=== PATIENT | male | born 1995 | race Caucasian/White ===

== ENCOUNTER 2025-03-25 07:04 | Day surgery (SDC) | payer OTHER ==
[2025-03-25] MEDS ORDERED: LIDOCAINE 1%-EPI 1:100,000 20 ML VIAL ONE (08:29)
[2025-03-25] MEDS ORDERED: BUPIVACAINE 0.5 % PF 150 MG/30 ML VIAL ONE (08:29)
[2025-03-25 10:55] VITALS: BP 124/84; TEMP 97.9; O2SAT 98
[2025-03-25 11:10] VITALS: BP 120/78; TEMP 98.1; O2SAT 98
[2025-03-25 11:25] VITALS: BP 124/78; TEMP 97.8; O2SAT 97
== END 2025-03-25 16:41 | disposition home or self-care (01) ==
LOC: DS 07:04 → MED 07:09 → UNDOADMIN 07:09 → MED 07:56 → UNDODISIN 14:30 → DS 16:41
PROVIDERS: ATTEND Surgery
DX: D17.22 Benign lipomatous neoplasm of skin and subcutaneous tissue of left arm (principal); R22.32 Localized swelling, mass and lump, left upper limb; Z79.899 Other long term (current) drug therapy; Z98.890 Other specified postprocedural states
CPT/HCPCS: 23073; A6403; J0690; J2704; J3490; G0378